=== PATIENT | female | born 1955 | race African-American/Black ===

== ENCOUNTER 2016-07-10 09:56 | Inpatient (IN) | payer OTHER ==
[~2016-07-10] VITALS: Ht 134.6 cm; Wt 80.0 kg
[~2016-07-10 09:56] MED LIST: ACTIVELLA1 TAB PO; CELEBREX200 MG PO; FLOMAX0.4 MG PO; GLIPIZIDE5 MG PO; HORMONE MEDICATION; HYDROCODON-ACE1 EAC8 PO; INDOCIN50 MG PO; JANUVIA100 MG PO; LOPRESSOR25 MG PO; LORTAB 5-325 M1 EACH PO; LOSARTAN POTASS50 MG PO; LYRICA75 MG PO; MEDROL DOSEPAK4 MG PO; METFORMIN HCL750 MG PO; NORCO 5/3251 TABLET PO; NUVIGIL150 MG PO; PIOGLITAZONE HC30 MG PO; TRESIBA FL100 UNIT/1 SC; VICTOZA0.6 MG/0.1 SQ; ZOFRAN ODT4 MG PO; insulin
[2016-07-10 10:15] LABS: POINT-OF-CARE METER ID UU13113778
[2016-07-10 10:40] LABS: EOSINOPHIL (%) 0.3 % (0-5); HEMATOCRIT 38.4 % (36.0-46.0); IMMATURE GRANULOCYTE (%) 0.2 % (0.0-0.7); INSTRUMENT ABS NEUTROPHIL CT 2.8 K/uL; LYMPHOCYTE COUNT 2.6 K/uL (1.0-2.8); MCH 31.8 PG (29.0-34.0); MCHC 34.9 G/DL (30.0-36.0); MEAN PLAT.VOLUME 11.3 uM^3 (9.5-12.4); MONOCYTE (%) 6.5 % (3-12); MONOCYTE COUNT 0.4 K/uL (0-0.8); NEUTROPHIL (%) 47.5 % (45-76); NEUTROPHIL COUNT 2.8 K/uL (1.8-6.4); PLATELET COUNT 283 K/uL (156-360); RBC DIS.WIDTH-SD 39.8 % (39-53); RED BLOOD COUNT 4.22 M/uL (3.80-5.20); WHITE BLOOD COUNT 5.8 K/uL (4.1-10.2)
[2016-07-10 10:50] LABS: CHLORIDE 104 mEq/L (99-109); POTASSIUM 3.7 mEq/L (3.7-5.4); SODIUM 139 mEq/L (136-147)
[2016-07-10 10:51] LABS: GLUCOSE 158 mg/dL (70-99)
[2016-07-10 10:53] LABS: ANION GAP 12 MEQ/L (2-14)
[2016-07-10 10:55] LABS: GFR ESTIMATE (CALCULATED) > 59 mL/min/
[2016-07-10 10:56] LABS: UREA NITROGEN (BUN) 12 mg/dL (9-23)
[2016-07-10] MEDS ORDERED: HYDROCODON-ACE1 EAC7 PO (13:17)
[2016-07-10] MEDS ORDERED: DULOXETINE HCL30 MG PO (13:20)
[2016-07-10] MEDS ORDERED: METOPROLOL SUC100 MG PO (13:20)
[2016-07-10] MEDS ORDERED: ASPIR-LOW81 MG PO (13:21)
[2016-07-10] MEDS ORDERED: VICTOZA 2-0.6 MG/0.1 SC ×2 (13:21→13:24)
[2016-07-10] MEDS ORDERED: GLUCOSAMINE CH1 EAC7 PO (13:32)
[2016-07-10 16:35] LABS: POINT-OF-CARE METER ID UU13113702
[2016-07-10 16:45] VITALS: BP 180/84
[2016-07-10 16:59] LABS: GLOBULINS 2.8 G/DL (2.3-3.5)
[2016-07-10 19:34] VITALS: BP 170/85
[2016-07-10 19:35] VITALS: BP 163/89
[2016-07-11] VITALS (10 sets, daily range): BP systolic 152–197; BP diastolic 70–93
[2016-07-11 06:14] LABS: POINT-OF-CARE METER ID UU14188577
[2016-07-11 12:18] LABS: POINT-OF-CARE METER ID UU14188577
[2016-07-12] VITALS (7 sets, daily range): BP systolic 135–194; BP diastolic 70–90
[2016-07-12 06:21] LABS: GFR ESTIMATE (CALCULATED) > 59 mL/min/; UREA NITROGEN (BUN) 5 mg/dL (9-23)
[2016-07-12 06:47] LABS: POINT-OF-CARE METER ID UU14188577
[2016-07-12 09:49] LABS: URINE TOTAL PROTEIN 9 MG/DL (0-10)
[2016-07-12 13:37] LABS: SERUM GEL NO. 36-6
[2016-07-13] VITALS (7 sets, daily range): BP systolic 154–189; BP diastolic 67–100
[2016-07-13 04:08] LABS: POINT-OF-CARE METER ID UU14149397
[2016-07-13 04:40] LABS: POINT-OF-CARE METER ID UU14149397
[2016-07-13 10:47] LABS: ALBUMIN 3.86 G/DL (3.6-4.9); ALBUMIN PERCENT 59.4 %; ALPHA-1 GLOBULIN 0.19 G/DL (0.15-0.40); ALPHA-1 PERCENT 2.9 %; ALPHA-2 GLOBULIN 0.81 G/DL (0.45-0.85); ALPHA-2 PERCENT 12.4 %
[2016-07-13 10:48] LABS: GAMMA PERCENT 15.3 %
[2016-07-14] VITALS (8 sets, daily range): BP systolic 141–188; BP diastolic 73–88
[2016-07-14 11:27] LABS: POINT-OF-CARE METER ID UU14149397
[2016-07-14 15:46] LABS: INTERPRETATION: Normal study.
[2016-07-14 16:56] LABS: POINT-OF-CARE METER ID UU14149397
[2016-07-15 04:13] VITALS: BP 138/76
[2016-07-15 06:54] LABS: POINT-OF-CARE METER ID UU14149397
[2016-07-15 07:51] VITALS: BP 139/83
[2016-07-15] MEDS ORDERED: PERCOCET 5/31 TABLET PO (09:09)
[2016-07-15 11:47] VITALS: BP 145/73
[2016-07-15 11:48] LABS: POINT-OF-CARE METER ID UU14188577
== END 2016-07-15 12:13 | disposition home or self-care (01) | DRG 312 ==
LOC: EME 09:56 → 3EAST 14:32 → EDOF 14:32 → 3EAST 16:12
PROVIDERS: Emergency Medicine; Family Medicine; Surgery
DX: R55 Syncope and collapse (principal); S22.41XA Multiple fractures of ribs, right side, initial encounter for closed fracture; E34.0 Carcinoid syndrome; S32.019A Unspecified fracture of first lumbar vertebra, initial encounter for closed fracture; Y92.012 Bathroom of single-family (private) house as the place of occurrence of the external cause; R53.81 Other malaise; Z88.0 Allergy status to penicillin; R23.2 Flushing; S29.8XXA Other specified injuries of thorax, initial encounter; E11.65 Type 2 diabetes mellitus with hyperglycemia; E11.43 Type 2 diabetes mellitus with diabetic autonomic (poly)neuropathy
CPT/HCPCS: 70450; 70551; 71020; 71260; 72132; 74177; 80048; 81003; 82565; 82948; 83497 90; 84165; 84166; 84520; 85025; 93306; 97530 GO; 97530 GP; 99281; 99285; J1170; J1650; J1815; J2270; J7030; J7120

== ENCOUNTER 2017-07-31 10:54 | Emergency (ER) | payer BC ==
[~2017-07-31] VITALS: Ht 162.6 cm; Wt 77.2 kg
[~2017-07-31 10:54] MED LIST changes: +ASPIR-LOW81 MG PO; +DULOXETINE HCL30 MG PO; +GLUCOSAMINE CH1 EAC7 PO; +HYDROCODON-ACE1 EAC7 PO; +METOPROLOL SUC100 MG PO; +PERCOCET 5/31 TABLET PO; +VICTOZA 2-0.6 MG/0.1 SC
[2017-07-31] MEDS ORDERED: PERCOCET 5/31 TABLET PO (12:04)
[2017-07-31 13:00] VITALS: BP 149/89
== END 2017-07-31 13:04 | disposition home or self-care (01) ==
LOC: EME 10:54
DX: S93.409A Sprain of unspecified ligament of unspecified ankle, initial encounter (principal); S40.012A Contusion of left shoulder, initial encounter; M25.562 Pain in left knee; W01.0XXA Fall on same level from slipping, tripping and stumbling without subsequent striking against object, initial encounter; M25.561 Pain in right knee; I10 Essential (primary) hypertension; E11.9 Type 2 diabetes mellitus without complications; Z79.4 Long term (current) use of insulin; Z79.82 Long term (current) use of aspirin; Z88.0 Allergy status to penicillin
CPT/HCPCS: 73030; 73610; 99281; 99284